=== PATIENT | female | born 1945 | race Caucasian/White ===

== ENCOUNTER → 2019-10-27 | Outpatient (CLI) | payer OTHER ==
[~2019-10-27] MED LIST: ALBU90OI6; ALPR1 PO; AMBIEN PO; AMLO5 PO; AMLODIPINE; ASPIRIN; ATORVASTATIN; Azor 10-20 MG1 EACH; ESTRADIOL; FLUC100; HYDROCODONE PO; LEVFLO500; LISHYD2025 PO; LISINOPRIL; Lisinopril2.5 MG; METO100ER PO; METOPROLOL PO; METPRE4DP PO; Pepcid20 MG PO; TRAMADOL PO; VICODIN HP 10-1 EACH; XANAX
== END | disposition home or self-care (01) ==
LOC: LAB SHORT 08:38 → PLD 08:38
DX: D48.5 Neoplasm of uncertain behavior of skin (principal)
CPT/HCPCS: 88305

== ENCOUNTER → 2020-08-14 | Outpatient (CLI) | payer OTHER | END | disposition home or self-care (01) | LOC: LAB 07:52 → LAB SHORT 07:52 | DX: C44.612 Basal cell carcinoma of skin of right upper limb, including shoulder (principal) | CPT/HCPCS: 88305 ==

== ENCOUNTER → 2020-10-11 | Outpatient (CLI) | payer OTHER | END | disposition home or self-care (01) | LOC: LAB SHORT 09:00 → LAB 09:00 | DX: C44.612 Basal cell carcinoma of skin of right upper limb, including shoulder (principal) | CPT/HCPCS: 88305 ==

== ENCOUNTER 2021-05-01 05:50 | Emergency (ER) | payer OTHER ==
[~2021-05-01] VITALS: Ht 157.5 cm; Wt 71.2 kg
[2021-05-01] MEDS ORDERED: ESTRADIOL1 MG PO (06:10)
[2021-05-01] MEDS ORDERED: TRAM50 PO (06:11)
[2021-05-01] MEDS ORDERED: ZOLP5 PO (06:11)
[2021-05-01] MEDS ORDERED: HYOS.125 PO (06:11)
[2021-05-01 07:00] LABS: BASOPHILS ABSOLUTE AUTO 0.02 K/mm3 (0.00-0.23); BASOPHILS PERCENT AUTO 0 % (0-2); EOSINOPHILS PERCENT AUTO 0 % (0-6); Hematocrit 37.9 % (33.0-51.0); Hemoglobin 12.8 g/dL (11.5-16.0); IMMATURE GRAN ABSOLUTE AUTO 0.03 K/mm3 (0.00-0.10); IMMATURE GRAN PERCENT AUTO 0 % (0-1); LYMPHOCYTES ABSOLUTE AUTO 1.08 K/mm3 (0.84-5.20); LYMPHOCYTES PERCENT AUTO 13 % (21-46); MONOCYTES ABSOLUTE AUTO 0.63 K/mm3 (0.16-1.47); MONOCYTES PERCENT AUTO 7 % (4-13); Mean Corpuscular HGB 29.9 pg (26.0-34.0); Mean Corpuscular HGB Conc 33.8 g/dL (31.5-36.5); Mean Corpuscular Volume 89 fL (80-100); Mean Platelet Volume 10.1 fL (9.1-12.4); NEUTROPHILS ABSOLUTE AUTO 6.73 K/mm3 (1.96-9.15); NEUTROPHILS PERCENT AUTO 79 % (41-73); Platelet Count 250 K/mm3 (150-400); RDW Coefficient Variation 13.3 % (11.7-14.2); RDW Standard Deviation 43.4 fL (35.1-46.3); Red Blood Cell Count 4.28 M/mm3 (3.80-5.20); White Blood Cell Count 8.49 K/mm3 (4.00-11.30)
[2021-05-01 07:10] LABS: Alanine Aminotransfer (ALT/SGP 24 U/L (12-78); Albumin, Blood 3.4 g/dL (3.4-5.0); Albumin/Globulin Ratio 0.9 (0.8-1.8); Alk Phos 51 U/L (50-136); Anion Gap 11 mmol/L (6-16); Aspartate Aminotrans (AST/SGOT 15 U/L (12-37); Bilirubin, Total 0.7 mg/dL (0.1-1.0); Blood Urea Nitrogen 14 mg/dL (8-24); Bun/Creatinine Ratio 19.4 (12.0-20.0); CO2, Blood 28 mmol/L (21-32); Calcium, Blood 9.3 mg/dL (8.5-10.1); Chloride, Blood 99 mmol/L (98-108); Creatinine, Blood 0.72 mg/dL (0.40-1.00); Globulin, Blood 3.7 g/dL (2.2-4.0); Glomerular Filtration Rate >60 (60-); Glucose, Blood 133 mg/dL (70-99); Sodium, Blood 138 mmol/L (136-145); Total Protein, Blood 7.1 g/dL (6.4-8.2)
[2021-05-01] MEDS ORDERED: AMOCLA875 PO (09:12)
[2021-05-01] MEDS ORDERED: Diflucan150 MG PO (09:25)
== END 2021-05-01 09:55 | disposition home or self-care (01) ==
LOC: ER 05:50
PROVIDERS: Emergency Medicine
DX: K52.9 Noninfective gastroenteritis and colitis, unspecified (principal); K62.5 Hemorrhage of anus and rectum; I10 Essential (primary) hypertension; E78.5 Hyperlipidemia, unspecified; Z88.2 Allergy status to sulfonamides; Z88.6 Allergy status to analgesic agent; Z88.1 Allergy status to other antibiotic agents; Z79.899 Other long term (current) drug therapy
CPT/HCPCS: 36415; 74177; 80053; 85025; 99284-25; A9270; Q9967

== ENCOUNTER 2021-08-09 09:11 | Day surgery (SDC) | payer OTHER ==
[~2021-08-09] VITALS: Ht 160 cm; Wt 71.0 kg
[~2021-08-09 09:11] MED LIST changes: +AMOCLA875 PO; +Diflucan150 MG PO; +ESTRADIOL1 MG PO; +HYOS.125 PO; -LISHYD2025 PO; +TRAM50 PO; +ZESTORETIC 20-1 EAC1 PO; +ZOLP5 PO
[2021-08-09] MEDS ORDERED: HYOS.125 (10:15)
[2021-08-09] MEDS ORDERED: ASPI81CH PO (10:15)
--- NOTE | 2021-08-09 10:22 | NUR ---
08/09/21 1022 Dolores Schneider CALL LIGHT WITHIN REACH. GEORGETTE OREILLY IN ROOM TO ASSIST IN PRE-OP. TETRACAIN EYE DROPS IN LEFT EYE AT 1015 LEONID AT 1028
== END 2021-08-09 11:33 | disposition home or self-care (01) ==
LOC: ORSCSDS 09:11
PROVIDERS: Ophthalmology
PROC: 08RK3JZ Replacement of Left Lens with Synthetic Substitute, Percutaneous Approach (ICD-10-PCS; principal; 2021-08-09 10:30)
DX: H25.12 Age-related nuclear cataract, left eye (principal); I10 Essential (primary) hypertension; Z79.899 Other long term (current) drug therapy; Z79.82 Long term (current) use of aspirin
CPT/HCPCS: J2001; J2250; J3010; J3301; J7040; V2632